=== PATIENT | male | born 1955 | race American Indian/Alaskan Native ===

== ENCOUNTER 2021-02-23 13:23 | Emergency (ER) | payer OTHER ==
[2021-02-23 14:12] VITALS: BP 128/56
--- NOTE | 2021-02-23 15:22 | Event Note ---
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 Further treatment and workup at subsequent clinical providers discretion. Patient/guardian urged not to elope from the ED as their condition may be serious if not clinically assessed and managed. Initial orders include: labs, CT
--- NOTE | 2021-02-23 16:44 | Cat Scan Report ---
CT LUMBAR SPINE: 02/23/2021 INDICATION / CLINICAL INFORMATION: low back pain, bilateral leg weakness. COMPARISON: None available. FINDINGS: CT images of the lumbar spine were obtained. Images are evaluated in the axial, coronal, and sagittal planes. There is no evidence of acute abnormality. Subtle left convex scoliosis of the lower lumbar spine is present. LEVEL BY LEVEL ANALYSIS: L5-S1: Disc space narrowing and mild diffuse disc bulging. Moderate bilateral foraminal encroachment . L4-5: Disc space narrowing and moderate diffuse disc bulging. Moderate facet degenerative changes. Th ere is narrowing of the right neural foramen with probable impingement upon the exiting right L4 nerv e root. L3-4: Moderate diffuse disc bulging. Mild central canal narrowing with no evidence of lateralization. L2-3: Mild diffuse disc bulging. L1-2: Unremarkable. PARASPINAL STRUCTURES: Unremarkable. IMPRESSION: Multilevel degenerative changes as described above. All CT scans at this location are performed using dose reduction to ALARA by means of automated expos ure control. Signer Name: Keyur Nobles MD Signed: 02/23/2021 4:39 PM Workstation Name: [id number]
[2021-02-23 16:47] LABS: Basophils % (Auto) 0.3 % (0.0-1.8); Eosinophils # (Auto) 0.1 K/mm3 (0.0-0.4); Eosinophils % (Auto) 1.1 % (0.0-4.3); Hematocrit 31.1 % (35.5-45.6); Hemoglobin 10.3 gm/dl (11.8-15.2); Lymphocytes # (Auto) 1.3 K/mm3 (1.2-5.4); Lymphocytes % (Auto) 14.5 % (13.4-35.0); Mean Corpuscular HGB Conc 33 % (32-34); Mean Corpuscular Volume 87 fl (84-94); Monocytes # (Auto) 0.8 K/mm3 (0.0-0.8); Monocytes % (Auto) 9.5 % (0.0-7.3); Platelet Count 290 K/mm3 (140-440); Red Blood Count 3.56 M/mm3 (3.65-5.03); Red Cell Distribution Width 14.7 % (13.2-15.2)
[2021-02-23 17:36] LABS: Albumin 3.9 g/dL (3.9-5); Calcium 10.1 mg/dL (8.4-10.2)
[2021-02-23] MEDS ORDERED: fentaNYL 100 MCG/2 ML INJ IM ONE (17:44)
[2021-02-23] MEDS ORDERED: ONDANSETRON 4 MG/2 ML INJ IM ONE (17:44)
[2021-02-23] MEDS ORDERED: KETOROLAC 60 MG/2 ML INJ IM ONE (17:45)
--- NOTE | 2021-02-23 17:49 | Emergency Department Report ---
HPI - General Chief Complaint: Back Pain/Injury Time Seen by Provider: 02/23/21 15:20 - HPI HPI: Room 36 The patient is a 65-year-old male present with a chief complaint of back pain. The patient states for 1 week he has had lower back pain radiating down both of his hips. Patient denies any preceding trauma stating 1 week ago he went to bed in his normal state and then awakened with this pain. Patient states the pain comes on with movement. Patient denies bowel or bladder incontinence. Patient denies paresthesia. Patient denies history of fever or dysuria. Patient currently gives his pain a score of "20/10." ED Past Medical Hx - Past Medical History Hx Hypertension: Yes Hx Diabetes: Yes Additional medical history: KIDNEY - Surgical History Hx Internal Defibrillator: Yes Additional Surgical History: Left upper extremity fistula - Family History Family history: no significant - Social History Smoking Status: Never Smoker Substance Use Type: None - Medications Home Medications: Home Medications Medication Instructions Recorded Confirmed Last Taken Type Cyclobenzaprine [Flexeril] 10 mg PO TID PRN #20 tablet 02/23/21 Unknown Rx HYDROcodone/APAP 5-325 [[place] 1 each PO Q6HR PRN #20 tablet 02/23/21 Unknown Rx 5/325] Ibuprofen [Motrin 800 MG tab] 800 mg PO Q8HR PRN #20 tablet 02/23/21 Unknown Rx ED Review of Systems ROS: Stated complaint: BACK PAIN Other details as noted in HPI Constitutional: denies: fever Eyes: denies: eye pain ENT: denies: throat pain Respiratory: no symptoms reported Cardiovascular: denies: chest pain Endocrine: no symptoms reported Gastrointestinal: denies: abdominal pain Musculoskeletal: back pain Neurological: denies: paresthesias Physical Exam - Physical Exam Vital Signs: Vital Signs 02/23/21 14:11 Temperature 99.2 F Pulse Rate 80 Respiratory 18 Rate Blood Pressure 128/56 O2 Sat by Pulse 97 Oximetry Physical Exam: GENERAL: The patient is well-developed well-nourished male sitting on edge of bed not appearing to be in acute distress. [] HEENT: Normocephalic. Atraumatic. Extraocular motions are intact. Patient has moist mucous membranes. NECK: Supple. Trachea midline CHEST/LUNGS: Clear to auscultation. There is no respiratory distress noted. HEART/CARDIOVASCULAR: Regular. There is no tachycardia. There is no gallop rub or murmur. ABDOMEN: Abdomen is soft, nontender. Patient has normal bowel sounds. There is no abdominal distention. SKIN: There is no rash. There is no edema. There is no diaphoresis. NEURO: The patient is awake, alert, and oriented. The patient is cooperative. The patient has no focal neurologic deficits. The patient has normal speech. GCS 15 MUSCULOSKELETAL: There is mild tenderness in the region of the lumbar spine. No axial step-offs. There is no evidence of acute injury. ED Course Vital Signs 02/23/21 14:11 Temperature 99.2 F Pulse Rate 80 Respiratory 18 Rate Blood Pressure 128/56 O2 Sat by Pulse 97 Oximetry ED Medical Decision Making - Lab Data Result diagrams: 02/23/21 15:55 02/23/21 15:55 Laboratory Tests 02/23/21 02/23/21 15:55 15:55 WBC 8.9 RBC 3.56 L Hgb 10.3 L Hct 31.1 L MCV 87 MCH 29 MCHC 33 RDW 14.7 Plt Count 290 Lymph % (Auto) 14.5 [place] % (Auto) 9.5 H Eos % (Auto) 1.1 Baso % (Auto) 0.3 Lymph # (Auto) 1.3 [place] # (Auto) 0.8 Eos # (Auto) 0.1 Baso # (Auto) 0.0 Seg Neutrophils % 74.6 H Seg Neutrophils # 6.7 Sodium 137 Potassium 4.2 Chloride 100.3 Carbon Dioxide 23 Anion Gap 18 BUN 44 H Creatinine 4.1 H Estimated GFR 15 BUN/Creatinine Ratio 11 Glucose 104 H Calcium 10.1 Total Bilirubin 0.40 AST 18 ALT 10 Alkaline Phosphatase 73 Total Protein 7.5 Albumin 3.9 Albumin/Globulin Ratio 1.1 - Radiology Data Radiology results: report reviewed (CT lumbar spine), image reviewed (CT lumbar spine) [facility] [address] [place] [address] Cat Scan Report Signed Patient: BEN BURNS MR#: [id number] : 1955 Acct:[id number] Age/Sex: 65 / M ADM Date: 02/23/21 Loc: ED Attending Dr: Ordering Physician: FELA SOARES Date of Service: 02/23/21 Procedure(s): CT lumbar spine wo con Accession Number(s): [id number] cc: FELA SOARES CT LUMBAR SPINE: 02/23/2021 INDICATION / CLINICAL INFORMATION: low back pain, bilateral leg weakness. COMPARISON: None available. FINDINGS: CT images of the lumbar spine were obtained. Images are evaluated in the axial, coronal, and sagittal planes. There is no evidence of acute abnormality. Subtle left convex scoliosis of the lower lumbar spine is present. LEVEL BY LEVEL ANALYSIS: L5-S1: Disc space narrowing and mild diffuse disc bulging. Moderate bilateral foraminal encroachment. L4-5: Disc space narrowing and moderate diffuse disc bulging. Moderate facet degenerative changes. There is narrowing of the right neural foramen with probable impingement upon the exiting right L4 nerve root. L3-4: Moderate diffuse disc bulging. Mild central canal narrowing with no evidence of lateralization. L2-3: Mild diffuse disc bulging. L1-2: Unremarkable. PARASPINAL STRUCTURES: Unremarkable. IMPRESSION: Multilevel degenerative changes as described above. All CT scans at this location are performed using dose reduction to ALARA by means of automated exposure control. Signer Name: Keyur Nobles MD Signed: 02/23/2021 4:39 PM Workstation Name: [id number] Transcribed By: AO Dictated By: Keyur Nobles MD Electronically Authenticated By: Keyur Nobles MD Signed Date/Time: 02/23/21 163 DD/ 14 TD/TT: Print Cancel - Differential Diagnosis Lumbar radiculopathy, lumbar strain, degenerative disc disease Critical care attestation.: If time is entered above; I have spent that time in minutes in the direct care of this critically ill patient, excluding procedure time. ED Disposition Clinical Impression: Degenerative lumbar disc, Lumbar radiculopathy Disposition: 01 HOME / SELF CARE / HOMELESS Is pt being admited?: No Does the pt Need Aspirin: No Condition: Stable Instructions: Degenerative Disk Disease, Radicular Pain Additional Instructions: Return to the emergency department should you develop worsening symptoms, inability to tolerate food or liquids, high fever or any other concerns Prescriptions: Cyclobenzaprine [Flexeril] 10 mg PO TID PRN #20 tablet PRN Reason: Muscle Spasm Ibuprofen [Motrin 800 MG tab] 800 mg PO Q8HR PRN #20 tablet PRN Reason: Pain, Moderate (4-6) HYDROcodone/APAP 5-325 [[place] 5/325] 1 each PO Q6HR PRN #20 tablet PRN Reason: Pain Referrals: DAISY GOLDBERG II, MD [Staff Physician] - [facility] (Dr. Goldberg is a neurosurgeon. Please follow-up with him for further management/evaluation of your back pain) Time of Disposition: 17:52
== END 2021-02-23 19:20 | disposition home or self-care (01) ==
LOC: ED 13:23
DX: M51.36 Other intervertebral disc degeneration, lumbar region (principal); M54.16 Radiculopathy, lumbar region; I12.9 Hypertensive chronic kidney disease with stage 1 through stage 4 chronic kidney disease, or unspecified chronic kidney disease; E11.22 Type 2 diabetes mellitus with diabetic chronic kidney disease; N18.9 Chronic kidney disease, unspecified; Z98.890 Other specified postprocedural states
CPT/HCPCS: 36415; 72131; 80053; 85025; 96372; 99284; J1885; J2405; J3010

== ENCOUNTER 2021-02-28 10:48 | Outpatient (CLI) | payer OTHER ==
[2021-02-28 11:33] LABS: Albumin 3.7 g/dL (3.9-5); Calcium 9.6 mg/dL (8.4-10.2)
--- NOTE | 2021-02-28 12:01 | XRay Report ---
CHEST 2 VIEWS INDICATION / CLINICAL INFORMATION: CKD STAGES/N18.5. COMPARISON: None available. FINDINGS: SUPPORT DEVICES: Right-sided dual-lumen hemodialysis catheter noted with tip at the superior cavoatri al junction. HEART / MEDIASTINUM: Mildly enlarged LUNGS / PLEURA: No significant pulmonary or pleural abnormality. No pneumothorax. ADDITIONAL FINDINGS: Elevation of right hemidiaphragm. IMPRESSION: 1. Mild cardiomegaly without acute findings. Signer Name: Benjie Mayfield MD Signed: 02/28/2021 11:56 AM Workstation Name: [email or web address]
[2021-02-28 16:08] LABS: Hepatitis C Virus Antibody Non-Reactive (NonReactive)
[2021-02-28 16:59] LABS: Hepatitis B Surface Antigen Nonreactive (Negative)
== END 2021-02-28 10:49 | disposition home or self-care (01) ==
LOC: XRAY 10:48
PROVIDERS: ATTEND Internal Medicine Nephrology
DX: I51.7 Cardiomegaly (principal); N18.5 Chronic kidney disease, stage 5
CPT/HCPCS: 36415; 71046; 80048; 80074; 82040; 84100